=== PATIENT | female | born 1955 | race Hispanic/Latino ===

== ENCOUNTER 2021-08-02 11:00 | Outpatient (RCR) | payer BC | END 2021-08-04 | LOC: PT 11:00 | PROVIDERS: ATTEND Family Medicine | DX: I69.320 Aphasia following cerebral infarction (principal) | CPT/HCPCS: 92523 ==

== ENCOUNTER → 2021-08-24 | Outpatient (CLI) | payer BC | LOC: DX 09:26 | PROVIDERS: ATTEND Family Medicine | DX: I69.920 Aphasia following unspecified cerebrovascular disease (principal) | CPT/HCPCS: 0223U; 36415; 74230; 92526; 92611 ==

== ENCOUNTER 2021-09-02 11:00 | Outpatient (RCR) | payer BC | END 2021-09-04 | LOC: PT 11:00 | PROVIDERS: ATTEND Family Medicine | DX: I69.320 Aphasia following cerebral infarction (principal) | CPT/HCPCS: 97139 ==

== ENCOUNTER 2021-09-14 11:00 | Outpatient (RCR) | payer BC | END 2021-10-05 | LOC: PT 11:00 | PROVIDERS: ATTEND Family Medicine | DX: I69.320 Aphasia following cerebral infarction (principal) ==